=== PATIENT | male | born 1985 | race Two or more races ===

== ENCOUNTER → 2018-05-20 | Outpatient (CLI) | payer OTHER ==
--- NOTE | 2018-05-20 10:15 | REP ---
RIGHT FOOT, FOUR VIEWS: HISTORY: Pain. There is no acute fracture or dislocation. The joint spaces are normal in appearance. IMPRESSION: There is no acute fracture or dislocation. Electronically Signed by Casa Riddle MD 05/20/2018 10:19 A
--- NOTE | 2018-05-20 10:16 | REP ---
RIGHT ANKLE, FOUR VIEWS: HISTORY: Pain. There is no acute fracture or dislocation. The joint space is normal in appearance. IMPRESSION: There is no acute fracture or dislocation. Electronically Signed by Casa Riddle MD 05/20/2018 10:20 A
== END ==
LOC: M RAD 09:07
PROVIDERS: ATTEND Surgery
DX: M25.571 Pain in right ankle and joints of right foot (principal); M79.671 Pain in right foot